=== PATIENT | male | born 1965 | race Caucasian/White ===

== ENCOUNTER 2016-09-26 16:14 | Inpatient (IN) | payer MEDICARE, OTHER ==
[2016-09-26 18:43] LABS: BASOPHIL 0.2 % (0-2); EOSINOPHIL 0.6 % (0-5); HCT 47.3 % (42.0-52.0); HGB 16.3 g/dl (13.2-18.0); LYMPHOCYTE 4.3 % (15-48); MCH 30.8 pg (25.0-31.0); MCHC 34.5 g/dL (32.0-36.0); MCV 89.4 fL (78.0-100.0); MPV 9.9 fL (6.0-9.5); NEUTROPHIL 91.9 % (41-80); PLT 379 K/uL (150-400); RBC 5.29 M/uL (4.70-6.00); RDW 14.9 % (11.5-14.0)
[2016-09-26 18:44] LABS: WBC 19.4 K/uL (4.0-10.5)
[2016-09-26 19:02] LABS: PRO-BNP 71 pg/mL (0-125); TROPONIN T < 0.010 ng/mL
[2016-09-26 19:04] LABS: ALBUMIN 4.8 g/dL (3.5-5.0); BILIRUBIN - TOTAL 0.5 mg/dL (0.1-1.0); CREATININE 0.9 mg/dL (0.7-1.2); GLOBULIN (CALCULATION) 2.8 g/dL (2.2-4.2); POTASSIUM 4.5 mmol/L (3.5-5.1); TOTAL PROTEIN 7.6 g/dL (6.4-8.3)
[2016-09-26 19:24] LABS: LACTIC ACID 1.2 mmol/L (0.5-2.2)
[2016-09-27 02:24] LABS: BASOPHIL 0.1 % (0-2); EOSINOPHIL 0.4 % (0-5); HCT 44.2 % (42.0-52.0); HGB 14.8 g/dl (13.2-18.0); LYMPHOCYTE 8.3 % (15-48); MCH 30.5 pg (25.0-31.0); MCHC 33.5 g/dL (32.0-36.0); MCV 90.9 fL (78.0-100.0); MONOCYTE 3.3 % (0-12); NEUTROPHIL 87.9 % (41-80); PLT 331 K/uL (150-400); RBC 4.86 M/uL (4.70-6.00); RDW 15.1 % (11.5-14.0)
[2016-09-27 02:30] LABS: WBC 18.8 K/uL (4.0-10.5)
[2016-09-27 02:42] LABS: CKMB 1.73 ng/mL (0.97-4.94); TROPONIN T < 0.010 ng/mL
[2016-09-27 02:43] LABS: ALBUMIN 4.2 g/dL (3.5-5.0); BILIRUBIN - TOTAL 0.6 mg/dL (0.1-1.0); CREATININE 0.9 mg/dL (0.7-1.2); GLOBULIN (CALCULATION) 2.6 g/dL (2.2-4.2); POTASSIUM 4.7 mmol/L (3.5-5.1); TOTAL PROTEIN 6.8 g/dL (6.4-8.3)
[2016-09-27 08:19] LABS: TROPONIN T < 0.010 ng/mL
[2016-09-28 04:03] LABS: HCT 38.3 % (42.0-52.0); HGB 12.6 g/dl (13.2-18.0); MCH 30.4 pg (25.0-31.0); MCHC 32.9 g/dL (32.0-36.0); MCV 92.5 fL (78.0-100.0); MPV 10.3 fL (6.0-9.5); RBC 4.14 M/uL (4.70-6.00); RDW 15.1 % (11.5-14.0); WBC 10.6 K/uL (4.0-10.5)
[2016-09-28 04:18] LABS: CREATININE 0.8 mg/dL (0.7-1.2); POTASSIUM 4.1 mmol/L (3.5-5.1)
[2016-09-29 07:45] LABS: HCT 39.8 % (42.0-52.0); HGB 13.3 g/dl (13.2-18.0); MCH 30.5 pg (25.0-31.0); MCHC 33.4 g/dL (32.0-36.0); MCV 91.3 fL (78.0-100.0); MPV 9.9 fL (6.0-9.5); RBC 4.36 M/uL (4.70-6.00); RDW 15.2 % (11.5-14.0); WBC 8.6 K/uL (4.0-10.5)
[2016-09-29 07:59] LABS: POTASSIUM 3.9 mmol/L (3.5-5.1)
[2016-09-30 05:08] LABS: HGB 13.5 g/dl (13.2-18.0); MCH 30.7 pg (25.0-31.0); MCHC 33.8 g/dL (32.0-36.0); MCV 90.9 fL (78.0-100.0); MPV 9.9 fL (6.0-9.5); RBC 4.4 M/uL (4.70-6.00); RDW 15.3 % (11.5-14.0); WBC 8.2 K/uL (4.0-10.5)
[2016-09-30 05:27] LABS: CREATININE 0.9 mg/dL (0.7-1.2)
[2016-10-01 05:24] LABS: HCT 42.4 % (42.0-52.0); HGB 14.2 g/dl (13.2-18.0); MCH 30.3 pg (25.0-31.0); MCHC 33.5 g/dL (32.0-36.0); MCV 90.4 fL (78.0-100.0); RBC 4.69 M/uL (4.70-6.00); RDW 15.5 % (11.5-14.0); WBC 9.4 K/uL (4.0-10.5)
[2016-10-01 05:46] LABS: CREATININE 0.9 mg/dL (0.7-1.2); POTASSIUM 4.3 mmol/L (3.5-5.1)
[2016-10-03] MEDS ORDERED: MOBIC15 MG PO (14:24)
[2016-10-03] MEDS ORDERED: PRILOSEC20 MG PO (14:24)
[2016-10-03] MEDS ORDERED: SPIRIVA 18MCG18 MCG INH (14:24)
[2016-10-03] MEDS ORDERED: ASPIRIN325 MG PO (14:24)
[2016-10-03] MEDS ORDERED: SEROQUEL XR300 MG PO (14:24)
[2016-10-03] MEDS ORDERED: COLACE100 MG PO (14:25)
[2016-10-03] MEDS ORDERED: NEOSPORIN OIN14.2 GM TOP (14:25)
[2016-10-03] MEDS ORDERED: GABAPENTIN600 MG PO (14:25)
[2016-10-03] MEDS ORDERED: ELAVIL25 MG PO (14:25)
[2016-10-03] MEDS ORDERED: LOTRISONE15 GM TOP (14:26)
[2016-10-03] MEDS ORDERED: ACETAMINOPHEN500 M1 PO (14:26)
[2016-10-03] MEDS ORDERED: AUGMENTIN 875-1 EACH PO (14:26)
[2016-10-03] MEDS ORDERED: VENTOLIN HFA IN18 GM INH (14:26)
[2016-10-03] MEDS ORDERED: MIRALAX17 GM PO (14:27)
[2016-10-03] MEDS ORDERED: DUONEB 2.5-0.5M1 AMP NEB ×2 (14:27)
[2016-10-03] MEDS ORDERED: LEVAQUIN750 M1 PO (14:27)
[2016-10-03] MEDS ORDERED: DULERA 200 MCG8.8 GM INH (14:28)
[2016-10-03] MEDS ORDERED: BENADRYL25 MG PO (14:29)
[2016-10-03] MEDS ORDERED: LAXATIVE SUPPOS10 MG PR (14:29)
[2016-10-03] MEDS ORDERED: LOVENOX40 MG/0.4 SC (14:30)
[2016-10-03] MEDS ORDERED: LACTINEX1 EACH PO (14:30)
[2016-10-03] MEDS ORDERED: MUCINEX 600MG600 MG PO (14:30)
== END 2016-10-03 19:00 | DRG 177 ==
LOC: FER 16:14 → FMS 20:15 → FICU 20:15 → FTCU 09-27 13:21 → FMS 09-28 10:50
PROVIDERS: Emergency Medicine; ADMIT Internal Medicine
DX: J69.0 Pneumonitis due to inhalation of food and vomit (principal); J96.01 Acute respiratory failure with hypoxia; D72.829 Elevated white blood cell count, unspecified; G89.29 Other chronic pain; R26.0 Ataxic gait; Z87.891 Personal history of nicotine dependence; Z82.49 Family history of ischemic heart disease and other diseases of the circulatory system; Z87.01 Personal history of pneumonia (recurrent); Z87.820 Personal history of traumatic brain injury
CPT/HCPCS: 36415; 36600; 71010; 80048; 80053; 82550; 82553; 82803; 83605; 83880; 84484; 85025; 85379; 87040; 93005; 94010; 94640; 94668; 97163; 97167; 97530; J0692; J1170; J1644; J1956; J2543; J2930